=== PATIENT | male | born 1990 | race Caucasian/White ===

== ENCOUNTER 2016-09-03 17:07 | Emergency (ER) | payer OTHER ==
[2016-09-03 17:18] VITALS: BP 128/87; PULSE 89; RESP 18; TEMP 97.5; O2SAT 94
--- NOTE | 2016-09-03 17:58 | EDPHY ---
H & P Time Seen by Provider: 09/03/16 17:39 HPI/ROS: Chief complaint. Finger laceration HPI. 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 Bleeding has been poorly controlled. No other injuries. Patient is right handed. No sense of retained foreign body ROS Constitutional. no fever/chills, no weakness Eyes. no problems with vision ENT. no sore throat, no nasal drainage Cardiovascular. no chest pain Respiratory. no shortness of breath, no cough Abdominal. no abdominal pain, no nausea/vomiting, no diarrhea . no problems urinating MS. no calf pain/swelling, no neck/back pain, no joint pain Skin. Laceration tip of left index finger Lymph. no swollen glands Neuro. no headache, no dizziness, no difficulty walking or with speech Past Medical/Surgical History: Irritable bowel syndrome Social History: Single daily smoker, no alcohol Smoking Status: Heavy smoker Physical Exam: General Appearance: Alert well-developed male mild distress vital signs stable Eyes: Pupils equal and round no pallor or injection. ENT, Mouth: Mucous membranes are moist. Respiratory: There are no retractions, lungs are clear to auscultation. Cardiovascular: Regular rate and rhythm. Gastrointestinal: Abdomen is soft and nontender, no masses, bowel sounds normal. Neurological: Awake and alert, sensory and motor exams grossly normal. Skin: Warm and dry, no rashes. Musculoskeletal: Neck is supple nontender. Extremities half by 0.5 cm avulsion type laceration tip of the left index finger partially involving the nail. No evidence for foreign body. Distal motor vascular sensitivity is intact Psychiatric: Patient is oriented X 3, there is no agitation. Constitutional: Initial Vital Signs Temperature (C) 36.4 C 09/03/16 17:10 Heart Rate 89 09/03/16 17:10 Respiratory Rate 18 09/03/16 17:10 Blood Pressure 128/87 H 09/03/16 17:10 O2 Sat (%) 94 09/03/16 17:10 O2 Delivery Mode Room Air Allergies/Adverse Reactions: Cephalosporins Allergy (Verified 09/03/16 17:18) Home Medications: Medication Instructions Recorded NK [No Known Home Meds] 09/03/16 Medical Decision Making Procedures: Wound is cleaned and dressed with Surgicel and bulky dressing. Bleeding is controlled ED Course/Re-evaluation: Patient remained stable. The patient and I discussed treatment plan including criteria for return importance of follow-up further evaluation. He expresses understanding and agreement Differential Diagnosis: Laceration not requiring sutures as he has sliced the tip completely off. It is full-thickness. I considered retained foreign body and infection potential Departure - Departure Disposition: Home, Routine, Self-Care Clinical Impression: Finger laceration Qualifiers: Encounter type: initial encounter Qualified Code(s): S61.219A - Laceration without foreign body of unspecified finger without damage to nail, initial encounter Condition: Good Instructions: Laceration Without Closure (ED) Additional Instructions: Leave dressing on for 24 hours. You may soak the bandage in warm water or have hydrogen peroxide and water to remove it. Subsequent bandages with some antibiotic ointment and Band-Aid until healed. Return for signs of infection Referrals: UNKNOWN,EDMUND [Other] - As per Instructions
== END 2016-09-03 18:15 | disposition home or self-care (01) ==
DX: S61.211A Laceration without foreign body of left index finger without damage to nail, initial encounter (principal); F17.200 Nicotine dependence, unspecified, uncomplicated; W27.4XXA Contact with kitchen utensil, initial encounter; Y92.69 Other specified industrial and construction area as the place of occurrence of the external cause; Y99.0 Civilian activity done for income or pay; Y93.89 Activity, other specified

== ENCOUNTER → 2018-05-16 | Outpatient (CLI) | payer OTHER | LOC: BMCIMAGING 11:08 | PROVIDERS: ATTEND Family Medicine | DX: S92.414A Nondisplaced fracture of proximal phalanx of right great toe, initial encounter for closed fracture (principal); Z87.81 Personal history of (healed) traumatic fracture ==

== ENCOUNTER → 2018-06-06 | Outpatient (CLI) | payer OTHER | LOC: BMCIMAGING 08:11 | PROVIDERS: ATTEND Podiatrist Foot & Ankle Surgery | DX: S92.414D Nondisplaced fracture of proximal phalanx of right great toe, subsequent encounter for fracture with routine healing (principal) ==

== ENCOUNTER → 2018-06-27 | Outpatient (CLI) | payer OTHER | LOC: BMCIMAGING 11:49 | PROVIDERS: ATTEND Podiatrist Foot & Ankle Surgery | DX: S92.411D Displaced fracture of proximal phalanx of right great toe, subsequent encounter for fracture with routine healing (principal) ==